=== PATIENT | male | born 1990 | race Hispanic/Latino ===

== ENCOUNTER 2019-11-30 01:21 | Emergency (ER) | payer SELFPAY ==
[2019-11-30] MEDS ORDERED: SODIUM CHLORIDE 0.9% 1000 ML 1,000 ML IV ONE (02:47)
[2019-11-30] MEDS ORDERED: ONDANSETRON 4 MG/2 ML INJ IV ONE (02:47)
[2019-11-30] MEDS ORDERED: ASPIRIN 325 MG TAB PO ONE (02:47)
[2019-11-30 02:57] LABS: Basophils # (Auto) 0.1 K/mm3 (0.0-0.1); Basophils % (Auto) 0.5 % (0.0-1.8); Eosinophils # (Auto) 0.1 K/mm3 (0.0-0.4); Eosinophils % (Auto) 0.4 % (0.0-4.3); Hemoglobin 15.7 gm/dl (11.8-15.2); Lymphocytes # (Auto) 2.2 K/mm3 (1.2-5.4); Mean Corpuscular HGB Conc 35 % (32-34); Mean Corpuscular Volume 85 fl (84-94); Monocytes # (Auto) 0.9 K/mm3 (0.0-0.8); Monocytes % (Auto) 6.6 % (0.0-7.3); Platelet Count 288 K/mm3 (140-440); Red Blood Count 5.29 M/mm3 (3.65-5.03); Red Cell Distribution Width 12.4 % (13.2-15.2)
[2019-11-30 03:14] LABS: BUN/Creatinine Ratio 13; Blood Urea Nitrogen 12 mg/dL (9-20); Calcium 9.6 mg/dL (8.4-10.2); Hemolysis Index 12
[2019-11-30 03:20] LABS: Alanine Aminotransferase 21 units/L (7-56); Albumin 4.6 g/dL (3.9-5)
--- NOTE | 2019-11-30 03:22 | XRay Report ---
CHEST 1 VIEW INDICATION: dyspnea, weakness. COMPARISON: None. FINDINGS: Support devices: None. Heart: Normal. Lungs/Pleura: No acute pulmonary or pleural findings. IMPRESSION: 1. No acute findings. Signer Name: Jung Hurt MD Signed: 11/30/2019 3:17 AM Workstation Name: [id number]
[2019-11-30 03:31] LABS: Bilirubin,Direct < 0.2 mg/dL (0-0.2)
[2019-11-30] MEDS ORDERED: KETOROLAC 30 MG/1 ML INJ IV ONE (03:43)
--- NOTE | 2019-11-30 04:51 | Emergency Department Report ---
ED General Adult HPI - General Chief complaint: Weakness Stated complaint: WEAKNESS,DIZZINESS Source: patient Mode of arrival: Stretcher Limitations: No Limitations - History of Present Illness Initial comments: Patient is a 29-year-old white male with no past medical history presents the ED with acute onset persistent generalized body weakness, lightheadedness, diaphoresis, nausea and generalized fatigue with mild upper extremity tingling sensation for the last 2 hours. Patient states that he was at work when he started feeling the symptoms. Patient denies dizziness, syncope, chest pain, shortness of breath, abdominal pain, vomiting, fever, chills, cough, sore throat, nasal and sinus congestion, headache, change in vision, back pain, dysuria or urinary frequency and urgency and hematuria. MD Complaint: Generalized weakness; lightheadedness; upper extremity tinglling -: Sudden, hour(s) (2) Location: upper extremity Radiation: non-radiation Severity scale (0 -10): 3 Quality: aching, dull Consistency: constant Improves with: none Worsens with: none Associated Symptoms: denies other symptoms, nausea/vomiting, weakness. denies: confusion, chest pain, cough, diaphoresis, fever/chills, headaches, loss of appetite, malaise, rash, seizure, shortness of breath, syncope Treatments Prior to Arrival: none - Related Data Previous Rx's Medication Instructions Recorded Last Taken Type Metaxalone [Skelaxin] 800 mg PO QHS PRN #20 tablet 11/30/19 Unknown Rx Naproxen 500 mg PO Q12H PRN #24 tablet 11/30/19 Unknown Rx Allergies Allergy/AdvReac Type Severity Reaction Status Date / Time No Known Allergies Allergy Unverified 11/30/19 02:12 ED Review of Systems ROS: Stated complaint: WEAKNESS,DIZZINESS Other details as noted in HPI Constitutional: malaise, weakness. denies: chills, fever Eyes: denies: eye pain, eye discharge, vision change ENT: denies: ear pain, throat pain Respiratory: denies: cough, shortness of breath, wheezing Cardiovascular: denies: chest pain, palpitations Endocrine: no symptoms reported Gastrointestinal: nausea. denies: abdominal pain, vomiting, diarrhea, hem atochezia Genitourinary: denies: urgency, dysuria Musculoskeletal: arthralgia, myalgia. denies: back pain, joint swelling Skin: denies: rash, lesions Neurological: denies: headache, weakness, paresthesias Psychiatric: denies: anxiety, depression Hematological/Lymphatic: denies: easy bleeding, easy bruising ED Past Medical Hx - Past Medical History Previous Medical History?: No - Surgical History Past Surgical History?: No - Social History Smoking Status: Never Smoker Substance Use Type: None - Medications Home Medications: Home Medications Medication Instructions Recorded Confirmed Last Taken Type Metaxalone [Skelaxin] 800 mg PO QHS PRN #20 tablet 11/30/19 Unknown Rx Naproxen 500 mg PO Q12H PRN #24 tablet 11/30/19 Unknown Rx ED Physical Exam - General Limitations: No Limitations General appearance: alert, in no apparent distress - Head Head exam: Present: atraumatic, normocephalic, normal inspection - Eye Eye exam: Present: normal appearance, PERRL, EOMI Pupils: Present: normal accommodation - ENT ENT exam: Present: normal exam, normal orophraynx, mucous membranes moist, TM's normal bilaterally, normal external ear exam - Neck Neck exam: Present: normal inspection, full ROM - Respiratory Respiratory exam: Present: normal lung sounds bilaterally. Absent: respiratory distress, wheezes, rales, rhonchi, chest wall tenderness, accessory muscle use, decreased breath sounds, prolonged expiratory - Cardiovascular Cardiovascular Exam: Present: regular rate, normal rhythm, normal heart sounds. Absent: systolic murmur, diastolic murmur, rubs, gallop - GI/Abdominal GI/Abdominal exam: Present: soft, normal bowel sounds. Absent: tenderness, guarding, rebound, hyperactive bowel sounds, hypoactive bowel sounds, orga nomegaly - Extremities Exam Extremities exam: Present: normal inspection, full ROM, normal capillary refill - Back Exam Back exam: Present: normal inspection, full ROM. Absent: tenderness, CVA tenderness (R), CVA tenderness (L), muscle spasm, paraspinal tenderness, vertebral tenderness - Neurological Exam Neurological exam: Present: alert, oriented X3, CN II-XII intact, normal gait, reflexes normal - Psychiatric Psychiatric exam: Present: normal affect, normal mood - Skin Skin exam: Present: warm, dry, intact, normal color. Absent: rash ED Course Vital Signs 11/30/19 02:11 Temperature 98.7 F Pulse Rate 78 Respiratory 18 Rate Blood Pressure 137/82 O2 Sat by Pulse 95 Oximetry ED Medical Decision Making - Lab Data Result diagrams: 11/30/19 02:27 11/30/19 02:27 - EKG Data EKG shows normal: sinus rhythm Rate: normal - EKG Data Interpretation: normal EKG 11/30/19 05:03 EKG shows normal sinus rhythm with a ventricular rate of [address] or T wave abnormalities. - Radiology Data Radiology results: report reviewed, image reviewed Findings [facility] [address] [place] [address] XRay Report Signed Patient: CRISTELA HENDRICKSON MR#: [id number] : 1990 Acct:[id number] Age/Sex: 29 / M ADM Date: 11/30/19 Loc: ED Attending Dr: Ordering Physician: PETER GUILLEN Date of Service: 11/30/19 Procedure(s): XR chest 1V ap Accession Number(s): [id number] cc: PETER GUILLEN Fluoro Time In Minutes: CHEST 1 VIEW INDICATION: dyspnea, weakness. COMPARISON: None. FINDINGS: Support devices: None. Heart: Normal. Lungs/Pleura: No acute pulmonary or pleural findings. IMPRESSION: 1. No acute findings. Signer Name: Jung Hurt MD Signed: 11/30/2019 3:17 AM Workstation Name: [id number] Transcribed By: MESSI Dictated By: Jung Hurt MD Electronically Authenticated By: Jung Hurt MD Signed Date/Time: 11/30/19316 DD/ 6 TD/TT: - Medical Decision Making This is a 29-year-old white male with no past medical history presents the ED with acute onset persistent generalized body weakness, lightheadedness, diaphoresis, nausea and generalized fatigue with mild upper extremity tingling sensation for the last 2 hours. Patient states that he was at work when he started feeling the symptoms. In the ED, patient is alert and oriented x3 and is not in distress. Chest x-ray shows no acute cardiopulmonary abnormalities or pneumonitis. Lab test results were reviewed and are all nonactionable except for acute leukocytosis of 13,600 and mild hypokalemia of 3.4 mmol/L. Patient was treated in the ED with aspirin, normal saline 1 L IV bolus x1 also antiemetics Zofran and Toradol. EKG showed normal sinus rhythm with a ventricular rate of [address] or T wave abnormalities. On reevaluation, patient felt better, patient was discharged home on medications and advised to follow-up with his primary care physician in 5 to 7 days for reevaluation. Patient was advised to drink plenty of fluids. Patient was otherwise advised to return to the ED immediately if symptoms get worse. - Differential Diagnosis Muscle spasm; muscle strain; dehydration; ACS; pneumonia; vertigo Critical care attestation.: If time is entered above; I have spent that time in minutes in the direct care o f this critically ill patient, excluding procedure time. ED Disposition Clinical Impression: Generalized weakness Muscle strain of upper extremity Qualifiers: Encounter type: initial encounter Laterality: unspecified laterality Qualified Code(s): S46.919A - Strain of unspecified muscle, fascia and tendon at shoulder and upper arm level, unspecified arm, initial encounter Disposition: TO HOME OR SELFCARE Is pt being admited?: No Does the pt Need Aspirin: No Condition: Stable Instructions: Muscle Strain (ED), Weakness (ED) Additional Instructions: All lab test results are unremarkable. Chest x-ray shows no acute cardiopulmonary abnormalities or pneumonitis. Therefore take medication with food, drink plenty of fluids and follow-up with your primary care physician in 3 to 5 days for reevaluation. Return to the ED immediately if symptoms get worse. Prescriptions: Metaxalone [Skelaxin] 800 mg PO QHS PRN #20 tablet PRN Reason: Muscle Spasm Naproxen 500 mg PO Q12H PRN #24 tablet PRN Reason: Pain , Severe (7-10) Referrals: [facility] [Provider Group] - 3-5 Days Forms: Work/School Release Form(ED) Time of Disposition: 04:50 Print Language: SWAZI
[2019-11-30 06:23] VITALS: BP 127/80
== END 2019-11-30 05:32 | disposition home or self-care (01) ==
LOC: ED 01:21
DX: S46.919A Strain of unspecified muscle, fascia and tendon at shoulder and upper arm level, unspecified arm, initial encounter (principal); R53.1 Weakness; X58.XXXA Exposure to other specified factors, initial encounter; Y93.89 Activity, other specified; Y92.89 Other specified places as the place of occurrence of the external cause; Y99.8 Other external cause status
CPT/HCPCS: 36415; 71045; 80048; 80076; 82550; 83690; 84484; 85025; 93005; 96361; 96374; 99284; J1885; J2405; J7030